=== PATIENT | male | born 1930 | race American Indian/Alaskan Native ===

== ENCOUNTER 2017-03-28 16:00 | Inpatient (IN) | payer MEDICARE ==
[2017-03-28 16:00] VITALS: BMI 23.8
--- NOTE | 2017-03-28 18:08 | CT ---
PROCEDURE: CT HEAD WITHOUT CONTRAST. HISTORY: Generalized weakness COMPARISON: Noncontrast head CT performed 01/02/17 TECHNIQUE: Axial computed tomography images were obtained through the head/brain without intravenous contrast. Radiation dose: Total exam DLP = 1130.06 mGy-cm. This CT exam was performed using one or more of the following dose reduction techniques: Automated exposure control, adjustment of the mA and/or kV according to patient size, and/or use of iterative reconstruction technique. FINDINGS: HEMORRHAGE: No intracranial hemorrhage. BRAIN: Diffuse atrophy with prominence of the ventricles and sulci noted. No mass effect or edema. Intracranial atherosclerotic calcifications. Encephalomalacia involving the right parietal and left occipital lobes. Hypodensity within the left cerebellum may reflect encephalomalacia. Scattered periventricular and subcortical white matter hypodensities, which are nonspecific, but often seen with chronic microvascular ischemic disease. Please note that MRI with diffusion imaging is more sensitive in the detection of acute ischemic event. VENTRICLES: No hydrocephalus. CALVARIUM: Unremarkable. PARANASAL SINUSES: Unremarkable as visualized. No significant inflammatory changes. MASTOID AIR CELLS: Unremarkable as visualized. No inflammatory changes. OTHER FINDINGS: None. IMPRESSION: Generalized atrophy. Encephalomalacia involving the right parietal and left occipital lobes. Hypodensity within the left cerebellum may reflect encephalomalacia. Additional nonspecific white matter changes. Please note that MRI with diffusion imaging is more sensitive in the detection of acute ischemic event.
[2017-03-28 18:10] LABS: ABG ALLEN TEST YES; ARTERIAL BLOOD GAS MODE NC; ARTERIAL BLOOD GAS O2 CAPACITY 17.4 mL/dL (16-24); ARTERIAL BLOOD GAS O2 CONTENT 17.5 ML/dL (15-23); ARTERIAL BLOOD GAS PH 7.43 (7.35-7.45); ARTERIAL BLOOD GAS PO2 106 mm/Hg (80-100); ARTERIAL BLOOD HGB O2 SAT 95.6 % (95.0-98.0); CARBOXYHEMOGLOBIN 3.1 % (0.5-1.5); HHB -0.8 % (0.0-5.0); METHEMOGLOBIN 2.2 % (0.0-3.0)
--- NOTE | 2017-03-28 18:18 | ED PDOC ---
HPI: General Adult Time Seen by Provider: 03/28/17 16:33 Chief Complaint (Nursing): Weakness/Neurological Deficit Chief Complaint (Provider): Generalized weakness History Per: Patient, Family (Son) History/Exam Limitations: no limitations Onset/Duration Of Symptoms: Days Have you had recent travel within the past 21 days to any of the following countries: [place], [place], [place] or [place]?: No Current Symptoms Are (Timing): Still Present Additional Complaint(s): Norbert Castillo, an 87 year old male, presents to the ED with generalized weakness he has been experiencing for the past couple days. He states that he just feels weakness all over. The patient's son states that he was recently released from the hospital and for the past day he has been breathing funny. Denies cough, fever and chest pain. PMD: [place] Past Medical History Reviewed: Historical Data, Nursing Documentation, Vital Signs Vital Signs: Last Vital Signs Temp 97.9 F 03/28/17 16:04 Pulse 134 H 03/28/17 21:10 Resp 27 H 03/28/17 21:10 BP 140/97 H 03/28/17 21:10 Pulse Ox 100 03/28/17 21:21 - Medical History PMH: CAD, CHF, COPD, Dementia, Deep Vein Thrombosis, HTN, Hypercholesterolemia, Pancreatitis Denies: HIV, Chronic Kidney Disease - Family History Family History: States: Unknown Family Hx - Social History Current smoker - smoking cessation education provided: Yes - Immunization History Hx Tetanus Toxoid Vaccination: No Hx Influenza Vaccination: No Hx Pneumococcal Vaccination: No - Home Medications Home Medications: Ambulatory Orders Medication Instructions Recorded Acetaminophen [Tylenol 325mg tab] 2 tab PO Q4H PRN 03/28/17 Apixaban [Eliquis] 2.5 mg PO BID 03/28/17 Aspirin [Ecotrin] 81 mg PO DAILY 03/28/17 Atorvastatin Calcium [Atorvastatin 10 mg PO HS 03/28/17 Calcium] Carvedilol [Coreg] 1 tab PO Q12H 03/28/17 Cholecalciferol (Vitamin D3) 1 tab PO DAILY 03/28/17 [Vitamin D3] Donepezil HCl [Aricept] 5 mg PO HS 03/28/17 Furosemide [Lasix] 40 mg PO DAILY 03/28/17 Losartan Potassium [Losartan 25 mg PO DAILY 03/28/17 Potassium] Megestrol Acetate [Megestrol 10 ml PO DAILY 03/28/17 Acetate] Mirtazapine [Mirtazapine] 15 mg PO DAILY 03/28/17 Rosuvastatin Calcium [Rosuvastatin 10 mg PO HS 03/28/17 Calcium] amLODIPine [Norvasc] 5 mg PO DAILY 03/28/17 - Allergies Allergies/Adverse Reactions: Allergies Allergy/AdvReac Type Severity Reaction Status Date / Time moxifloxacin HCl Allergy REDNESS Verified 03/28/17 16:04 [From Avelox] Penicillins Allergy RASH Verified 03/28/17 16:04 vancomycin AdvReac RASH Verified 03/28/17 16:04 Review of Systems ROS Statement: Except As Marked, All Systems Reviewed And Found Negative Constitutional: Positive for: Weakness (generalized weakness). Negative for: Fever Cardiovascular: Negative for: Chest Pain Respiratory: Negative for: Cough Physical Exam - Reviewed Nursing Documentation Reviewed: Yes Vital Signs Reviewed: Yes - Physical Exam Appears: Positive for: Non-toxic (Looks lethargic), No Acute Distress Head Exam: Positive for: ATRAUMATIC, NORMOCEPHALIC Skin: Positive for: Normal Color, Warm, Dry Eye Exam: Positive for: Normal appearance, EOMI, PERRL ENT: Positive for: Other (Mucous membranes are dry.) Neck: Positive for: Normal, Painless ROM, Supple Cardiovascular/Chest: Positive for: Regular Rate, Rhythm, Chest Non Tender, Tachycardia Respiratory: Positive for: Normal Breath Sounds. Negative for: Wheezing, Respiratory Distress Gastrointestinal/Abdominal: Positive for: Normal Exam, Soft. Negative for: Tenderness Back: Positive for: Normal Inspection. Negative for: L CVA Tenderness, R CVA Tenderness Extremity: Positive for: Normal ROM, Tenderness. Negative for: Deformity, Swelling Neurologic/Psych: Positive for: Alert, Oriented, Other (Arousable to verbal stimuli.) - Laboratory Results Result Diagrams: 03/28/17 18:00 03/28/17 18:00 - ECG O2 Sat by Pulse Oximetry: 100 (RA) Pulse Ox Interpretation: Normal - Radiology X-Ray: Interpreted by Al X-Ray Interpretation: COPD - CT Scan/US CT head Other Rad Studies (CT/US): Radiology Report Reviewed (Generalized atrophy. Encephalomalacia involving the right parietal and left occipital lobes. Hypodensity within the left cerebellum may reflect encephalomalacia. Additional nonspecific white matter changes. Please note that MRI with diffusion imaging is more sensitive in the detection of acute ischemic event.) CT chest Other Rad Studies (CT/US): Radiology Report Reviewed (Emphysema, no focal pneumonia; no pulmonary emboli; cardiomegaly and atherosclerotic disease; mediastinal and hilar adenopathy infectious/inflammatory versus neoplastic; gallstones.) - Physician Consult Information Time Consulting Physican Contacted: 21:20 Physician Contacted: Efrain Ahuja Medical Decision Making Medical Decision Makin:33 Initial Impression: 87 year old male presenting with generalized weakness. Initial Plan: * ABG * CT head w/o contrast * EKG * CMP * Troponin 1 * CBC * D-dimer * PTT * Prothrombin time * CXR * Blood culture * Glucose,Blood, POC * Urinalysis * Reevaluation Scribe Attestation Documented by Concepcion Lucia acting as a scribe for Shyann Moreno MD. Provider Attestation All medical record entries made by the Scribe were at my direction and personally dictated by me. I have reviewed the chart and agree that the record accurately reflects my personal performance of the history, physical exam, medical decision making, and the department course for this patient. I have also personally directed, reviewed, and agree with the discharge instructions and disposition. Disposition - Clinical Impression Clinical Impression: Generalized weakness, NSTEMI (non-ST elevated myocardial infarction), Mediastinal adenopathy, Hilar adenopathy - Patient ED Disposition Is Patient to be Admitted: Yes - Disposition Disposition Time: 21:30 Condition: GUARDED - Pt Status Changed To: Hospital Disposition Of: Inpatient - Admit Certification Admit to Inpatient:: After my assessment, the patient will require hospitalization for at least two midnights. This is because of the severity of symptoms shown, intensity of services needed, and/or the medical risk in this patient being treated as an outpatient. - POA Present On Arrival: None
[2017-03-28 18:30] LABS: BASO # 0.1 K/uL (0.0-0.2); BASO % 0.7 % (0.0-2.0); EOS # 0.1 K/uL (0.0-0.7); EOS % 0.9 % (0.0-4.0); HEMATOCRIT 39.4 % (35.0-51.0); LYMPH # 2.1 K/uL (1.0-4.3); LYMPH % 21.2 % (20.0-40.0); MEAN CELL VOLUME 93.7 fl (80.0-94.0); MEAN CORPUSCULAR HEMOGLOBIN 29.5 pg (27.0-31.0); MEAN CORPUSCULAR HGB CONC 31.5 g/dL (33.0-37.0); MONO % 10.5 % (0.0-10.0); NEUT # 6.4 K/uL (1.8-7.0); NEUT % 66.7 % (50.0-75.0); RED CELL DISTRIBUTION WIDTH 18.7 % (11.5-14.5); WHITE BLOOD COUNT 9.7 K/uL (4.8-10.8)
[2017-03-28 18:38] LABS: ALB/GLOB RATIO 0.9 (1.0-2.1); ALKALINE PHOSPHATASE 58 U/L (38-126); ALT/SGPT 20 U/L (21-72); AST/SGOT 23 U/L (17-59); BILIRUBIN,TOTAL 1.8 mg/dl (0.2-1.3); BLOOD UREA NITROGEN 28 mg/dl (9-20); CALCIUM 9.5 mg/dL (8.4-10.2); CARBON DIOXIDE 15 mmol/L (22-30); CHLORIDE 112 mmol/L (98-107); GFR AFRICAN-AMERICAN > 60; GLUCOSE,RANDOM 102 mg/dL (75-110); POTASSIUM 4.2 MMOL/L (3.6-5.0); SODIUM 143 mmol/l (132-148); TOTAL PROTEIN 7.7 G/DL (6.3-8.2)
[2017-03-28] MEDS ORDERED: Sodium Chloride 0.9% 500 ML IV STA (18:51)
[2017-03-28 19:22] LABS: PARTIAL THROMBOPLASTIN TIME > 180.0 SECONDS (23.3-32.5)
[2017-03-28] MEDS ORDERED: Iodixanol 320 MG/ML 100 ML BOTTLE IV ONE (20:15)
[2017-03-28] MEDS ORDERED: Sodium Chloride 0.9% 50 ML IV ONE (20:16)
[2017-03-28 20:47] LABS: PARTIAL THROMBOPLASTIN TIME 38.7 SECONDS (23.3-32.5)
--- NOTE | 2017-03-28 21:36 | CT ---
EXAM: CT Angiography Chest With Intravenous Contrast CLINICAL HISTORY: 87 years old, male; Signs and symptoms; Shortness of breath and tachypnea; Additional info: SOB, tachy TECHNIQUE: Axial computed tomographic angiography images of the chest with intravenous contrast using pulmonary embolism protocol. This CT exam was performed using one or more of the following dose reduction techniques: automated exposure control, adjustment of the mA and/or kV according to patient size, and/or use of iterative reconstruction technique. MIP reconstructed images were created and reviewed. Coronal and sagittal reformatted images were created and reviewed. CONTRAST: 80 mL of [id number] administered intravenously. EXAM DATE/TIME: 03/28/2017 7:30 PM COMPARISON: CT - ANGIO CHEST PE PROTOCOL 12/30/2016 2:15:09 AM FINDINGS: Heart, aorta and Pulmonary arteries: There is a persistent left superior vena cava. The heart is enlarged. There are coronary artery calcifications. There is reflux of contrast into inferior vena cava and hepatic veins. Pulmonary vessels are well opacified. There is no central pulmonary emboli. There are no filling defects in the proximal peripheral vessels. Severe architectural distortion limits evaluation of peripheral lower lobe vessels. Lungs: Trachea and bronchi are patent. There is no pneumothorax. There diffuse emphysematous changes bilaterally difficult to characterize. Nodular pleural thickening at the right apex is unchanged. There is scarring with pleural nodularity in the right middle lobe and in the lingula, unchanged. There are blebs and bulla in the lower lobes. There is fibrosis in the lower lobes. There is dependent atelectasis. There is no lobar or segmental consolidation. There is a 2.2 cm pleural-based left lower lobe nodule, unchanged. There are no effusions. Mediastinum: There is mediastinal and hilar adenopathy. Esophagus is unremarkable. Thyroid: Thyroid is not optimally demonstrated. Bones/joints: Bony structures are osteopenic with degenerative change Soft tissues: unremarkable Upper abdomen: There are no acute abnormalities in the visualized portion of the abdomen. Gallbladder is distended with stones. Pancreas is atrophic. IMPRESSION: Emphysema, no focal pneumonia; no pulmonary emboli; cardiomegaly and atherosclerotic disease; mediastinal and hilar adenopathy infectious/inflammatory versus neoplastic; gallstones
[2017-03-28] MEDS ORDERED: Sodium Chloride 0.9% 1,000 ML IV STA (21:54)
--- NOTE | 2017-03-29 08:38 | CARD ---
APPROVED REPORT EKG Measurement Heart [id number] P101 [id number] <Conclusion> Atrial flutter with 2:1 AV conduction Minimal voltage criteria for LVH, may be normal variant T wave abnormality, consider inferior ischemia Abnormal ECG
[2017-03-29] MEDS ORDERED: MEGESTROL ACETATE PO SCH (09:00)
[2017-03-29] MEDS ORDERED: Megestrol Acetate 40 mg/ml Cup PO SCH (09:00)
[2017-03-29] MEDS ORDERED: Patient's Own Med (Cholecalciferol (Vitamin D3) [Vitamin D3] 1 TAB) PO SCH (09:00)
[2017-03-29 09:46] LABS: THYROID STIMULATING HORMONE 2.36 mIU/ML (0.46-4.68)
--- NOTE | 2017-03-29 12:05 | RAD ---
HISTORY: Generalized weakness COMPARISON: Comparison made with prior chest radiograph dated 01/06/2017. Note also that this examination was read in conjunction with subsequent CTA of the chest dated 03/28/2017 at 20:30 hours. FINDINGS: LUNGS: Emphysematous changes with upper lobe predominance present though seen to better advantage on prior CTA chest. Mild bibasilar atelectasis -scarring changes. 2.2 cm elliptical shaped pleural-based mass density left posterior sulcus not appreciated on this study. Please refer to CTA of the chest for further evaluation. PLEURA: No apparent pneumothorax or effusion however chronic appearing pleural thickening changes both lung bases and CP angle regions. CARDIOVASCULAR: Heart is enlarged. OSSEOUS STRUCTURES: No significant abnormalities. VISUALIZED UPPER ABDOMEN: Normal. OTHER FINDINGS: None. IMPRESSION: Emphysematous changes with upper lobe predominance present though seen to better advantage on prior CTA chest. Mild bibasilar atelectasis -scarring and pleural thickening changes. 2.2 cm elliptical shaped pleural-based mass density left posterior sulcus not appreciated on this study. Please refer to CTA of the chest for further evaluation.
[2017-03-29 12:35] LABS: RBC URINE 1 /hpf (0-3); URINE BILIRUBIN NEGATIVE (NEGATIVE); URINE BLOOD NEGATIVE (NEGATIVE); URINE COLOR YELLOW (YELLOW); URINE GLUCOSE (UA) NEG (Normal); URINE KETONE TRACE mg/dL (NEGATIVE); URINE LEUKOCYTE ESTERASE NEG Leu/uL (Negative); URINE PROTEIN 30 mg/dL (NEGATIVE); URINE UROBILINOGEN 0.2-1.0 mg/dL (0.2-1.0); WBC URINE 1 /hpf (0-5)
--- NOTE | 2017-03-29 14:04 | CP.PCM.HP ---
History of Present Illness - History of Present Illness History of Present Illness: Norbert Castillo, an 87 year old male, presents to the ED with generalized weakness he has been experiencing for the past couple days. He states that he just feels weakness all over. The patient's son states that he was recently released from the hospital and for the past day he has been breathing funny. Denies cough, fever and chest pain. Past Patient History - Infectious Disease Hx of Infectious Diseases: None - Past Medical History & Family History Past Medical History?: Yes - Past Social History Smoking Status: Former Smoker - CARDIAC Hx Cardiac Disorders: Yes Hx Congestive Heart Failure: Yes Hx Hypercholesterolemia: Yes Hx Hypertension: Yes - PULMONARY Hx Respiratory Disorders: Yes Hx Chronic Obstructive Pulmonary Disease (COPD): Yes - NEUROLOGICAL Hx Neurological Disorder: Yes Hx Dementia: Yes - HEENT Hx HEENT Problems: No - RENAL Hx Chronic Kidney Disease: No - ENDOCRINE/METABOLIC Hx Endocrine Disorders: No - HEMATOLOGICAL/ONCOLOGICAL Hx Blood Disorders: No Hx AIDS: No Hx Human Immunodeficiency Virus (HIV): No - INTEGUMENTARY Hx Dermatological Problems: No - MUSCULOSKELETAL/RHEUMATOLOGICAL Hx Musculoskeletal Disorders: Yes Hx Falls: No Hx Unsteady Gait: Yes - GASTROINTESTINAL Hx Pancreatitis: Yes - GENITOURINARY/GYNECOLOGICAL Hx Genitourinary Disorders: No - PSYCHIATRIC Hx Psychophysiologic Disorder: No Hx Substance Use: No - SURGICAL HISTORY Hx Surgeries: Yes Hx Amputation: Yes (RIGHT ABOVE THE KNEE) - ANESTHESIA Hx Anesthesia: Yes Hx Anesthesia Reactions: No Hx Malignant Hyperthermia: No Meds Allergies/Adverse Reactions: Allergies Allergy/AdvReac Type Severity Reaction Status Date / Time moxifloxacin HCl Allergy REDNESS Verified 03/28/17 16:04 [From Avelox] Penicillins Allergy RASH Verified 03/28/17 16:04 vancomycin AdvReac RASH Verified 03/28/17 16:04 Results - Vital Signs Recent Vital Signs: Last Vital Signs Temp 98.4 F 03/29/17 12:32 Pulse 98 H 03/29/17 12:32 Resp 18 03/29/17 12:32 BP 142/80 03/29/17 12:32 Pulse Ox 99 03/29/17 12:32 - Labs Result Diagrams: 03/28/17 18:00 03/28/17 18:00 Labs: Laboratory Results - last 24 hr 03/29/17 03/29/17 03/29/17 00:45 08:40 08:40 Troponin I 0.1820 H* 0.1650 H* Vitamin B12 > 1000 H TSH 3rd Generation 2.36 Urine Color Urine Clarity Urine pH Ur Specific [place] Urine Protein Urine Glucose (UA) Urine Ketones Urine Blood Urine Nitrate Urine Bilirubin Urine Urobilinogen Ur Leukocyte Esterase Urine RBC (Auto) Urine Microscopic WBC Ur Squamous Epith Cells 03/29/17 12:00 Troponin I Vitamin B12 TSH 3rd Generation Urine Color Yellow Urine Clarity Clear Urine pH 5.0 Ur Specific [place] 1.031 H Urine Protein 30 Urine Glucose (UA) Neg Urine Ketones Trace Urine Blood Negative Urine Nitrate Negative Urine Bilirubin Negative Urine Urobilinogen 0.2-1.0 Ur Leukocyte Esterase Neg Urine RBC (Auto) 1 Urine Microscopic WBC 1 Ur Squamous Epith Cells < 1
--- NOTE | 2017-03-29 15:28 | CP.PCM.CON ---
History of Present Illness - History of Present Illness History of Present Illness: I was asked to see patient by Dr. Barrera. Patient is an 87 year old male with a history of HTN, CAD, hypercholesterolemia who presents with weakness and fatigue. The patient underwent previous cardiac cath revealing multivessel CAD. Due to comorbidities, it was recommend to have medical therapy.The patient is not communicative at this point. Review of Systems - Review of Systems Systems not reviewed;Unavailable: Altered Mental Status Past Patient History - Infectious Disease Hx of Infectious Diseases: None - Past Medical History & Family History Past Medical History?: Yes - Past Social History Smoking Status: Former Smoker - CARDIAC Hx Cardiac Disorders: Yes Hx Congestive Heart Failure: Yes Hx Hypercholesterolemia: Yes Hx Hypertension: Yes - PULMONARY Hx Respiratory Disorders: Yes Hx Chronic Obstructive Pulmonary Disease (COPD): Yes - NEUROLOGICAL Hx Neurological Disorder: Yes Hx Dementia: Yes - HEENT Hx HEENT Problems: No - RENAL Hx Chronic Kidney Disease: No - ENDOCRINE/METABOLIC Hx Endocrine Disorders: No - HEMATOLOGICAL/ONCOLOGICAL Hx Blood Disorders: No Hx AIDS: No Hx Human Immunodeficiency Virus (HIV): No - INTEGUMENTARY Hx Dermatological Problems: No - MUSCULOSKELETAL/RHEUMATOLOGICAL Hx Musculoskeletal Disorders: Yes Hx Falls: No Hx Unsteady Gait: Yes - GASTROINTESTINAL Hx Pancreatitis: Yes - GENITOURINARY/GYNECOLOGICAL Hx Genitourinary Disorders: No - PSYCHIATRIC Hx Psychophysiologic Disorder: No Hx Substance Use: No - SURGICAL HISTORY Hx Surgeries: Yes Hx Amputation: Yes (RIGHT ABOVE THE KNEE) - ANESTHESIA Hx Anesthesia: Yes Hx Anesthesia Reactions: No Hx Malignant Hyperthermia: No Meds Allergies/Adverse Reactions: Allergies Allergy/AdvReac Type Severity Reaction Status Date / Time moxifloxacin HCl Allergy REDNESS Verified 03/28/17 16:04 [From Avelox] Penicillins Allergy RASH Verified 03/28/17 16:04 vancomycin AdvReac RASH Verified 03/28/17 16:04 - Medications Medications: Current Medications Acetaminophen (Tylenol 325mg Tab) 650 mg PO Q4H PRN PRN Reason: Pain, Mild (1-3) Amlodipine Besylate (Norvasc) 5 mg PO DAILY [facility] Last Admin: 03/29/17 09:02 Dose: 5 mg Apixaban (Eliquis) 2.5 mg PO BID [facility] PRN Reason: Protocol Last Admin: 03/29/17 11:54 Dose: 2.5 mg Aspirin (Ecotrin) 81 mg PO DAILY [facility] Last Admin: 03/29/17 09:02 Dose: 81 mg Atorvastatin Calcium (Lipitor) 20 mg PO HS [facility] Carvedilol (Coreg) 12.5 mg PO Q12H [facility] Last Admin: 03/29/17 09:01 Dose: 12.5 mg Cholecalciferol (Vitamin D) 2,000 iu PO DAILY [facility] Last Admin: 03/29/17 09:03 Dose: 2,000 iu Donepezil HCl (Aricept) 5 mg PO HS [facility] Furosemide (Lasix) 40 mg PO DAILY [facility] Last Admin: 03/29/17 09:02 Dose: 40 mg Losartan Potassium (Cozaar) 25 mg PO DAILY [facility] Last Admin: 03/29/17 09:01 Dose: 25 mg Megestrol Acetate (Megace) 400 mg PO DAILY [facility] Last Admin: 03/29/17 09:02 Dose: 400 mg Mirtazapine (Remeron) 15 mg PO DAILY [facility] Last Admin: 03/29/17 09:03 Dose: 15 mg Physical Exam - Constitutional Appears: Non-toxic - Head Exam Head Exam: NORMAL INSPECTION - Eye Exam Eye Exam: Normal appearance - ENT Exam ENT Exam: Mucous Membranes Moist - Neck Exam Neck exam: Positive for: Full Rom - Respiratory Exam Respiratory Exam: Decreased Breath Sounds - Cardiovascular Exam Cardiovascular Exam: REGULAR RHYTHM - GI/Abdominal Exam GI & Abdominal Exam: Normal Bowel Sounds - Rectal Exam Rectal Exam: Deferred - Extremities Exam Extremities exam: Positive for: pedal edema - Back Exam Back exam: NORMAL INSPECTION - Neurological Exam Neurological exam: Alert, Oriented x3 - Psychiatric Exam Psychiatric exam: Normal Affect - Skin Skin Exam: Normal Color Results - Vital Signs Recent Vital Signs: Last Vital Signs Temp 98.4 F 03/29/17 12:32 Pulse 98 H 03/29/17 12:32 Resp 18 03/29/17 12:32 BP 142/80 03/29/17 12:32 Pulse Ox 99 03/29/17 12:32 - Labs Result Diagrams: 03/28/17 18:00 03/28/17 18:00 Labs: Laboratory Results - last 24 hr 03/29/17 03/29/17 03/29/17 00:45 08:40 08:40 Troponin I 0.1820 H* 0.1650 H* Vitamin B12 > 1000 H TSH 3rd Generation 2.36 Urine Color Urine Clarity Urine pH Ur Specific [place] Urine Protein Urine Glucose (UA) Urine Ketones Urine Blood Urine Nitrate Urine Bilirubin Urine Urobilinogen Ur Leukocyte Esterase Urine RBC (Auto) Urine Microscopic WBC Ur Squamous Epith Cells 03/29/17 12:00 Troponin I Vitamin B12 TSH 3rd Generation Urine Color Yellow Urine Clarity Clear Urine pH 5.0 Ur Specific [place] 1.031 H Urine Protein 30 Urine Glucose (UA) Neg Urine Ketones Trace Urine Blood Negative Urine Nitrate Negative Urine Bilirubin Negative Urine Urobilinogen 0.2-1.0 Ur Leukocyte Esterase Neg Urine RBC (Auto) 1 Urine Microscopic WBC 1 Ur Squamous Epith Cells < 1 - EKG Data EKG Interpreted by: Myself Assessment & Plan (1) CAD (coronary artery disease) Assessment and Plan: recommend antiplatelet therapy. Status: Acute (2) Hypercholesterolemia Assessment and Plan: recommend statin therapy Status: Acute (3) Hypertension Assessment and Plan: will monitor blood pressure Status: Chronic Priority: High
[2017-03-29] MEDS ORDERED: ROSUVASTATIN CALCIUM 10 MG PO SCH (22:00)
--- NOTE | 2017-03-29 23:10 | CP.PCM.PN ---
Subjective - Date & Time of Evaluation Date of Evaluation: 03/29/17 Objective - Vital Signs/Intake and Output Vital Signs (last 24 hours): Temp Pulse Resp BP Pulse Ox 97.9 F 60 20 105/73 100 03/29/17 20:00 03/29/17 20:00 03/29/17 20:00 03/29/17 20:00 03/29/17 20:00 Intake and Output: 03/29/17 03/30/17 18:59 06:59 Intake Total 400 Output Total 500 Balance -100 - Labs Labs: PT 40.8 SECONDS (9.6-11.2) H* 03/28/17 19:45 INR 3.92 (0.92-1.08) H 03/28/17 19:45 APTT 38.7 SECONDS (23.3-32.5) H 03/28/17 19:45
[2017-03-30 07:18] LABS: HEMATOCRIT 40.2 % (35.0-51.0); MEAN CELL VOLUME 92.3 fl (80.0-94.0); MEAN CORPUSCULAR HEMOGLOBIN 29.8 pg (27.0-31.0); MEAN CORPUSCULAR HGB CONC 32.3 g/dL (33.0-37.0); RED CELL DISTRIBUTION WIDTH 18.3 % (11.5-14.5); WHITE BLOOD COUNT 7.3 K/uL (4.8-10.8)
[2017-03-30 07:39] LABS: ALB/GLOB RATIO 0.9 (1.0-2.1); ALKALINE PHOSPHATASE 55 U/L (38-126); ALT/SGPT 21 U/L (21-72); AST/SGOT 23 U/L (17-59); BILIRUBIN,TOTAL 1.3 mg/dl (0.2-1.3); BLOOD UREA NITROGEN 20 mg/dl (9-20); CALCIUM 9.1 mg/dL (8.4-10.2); CARBON DIOXIDE 21 mmol/L (22-30); CHLORIDE 111 mmol/L (98-107); GFR AFRICAN-AMERICAN > 60; GLUCOSE,RANDOM 92 mg/dL (75-110); POTASSIUM 3.4 MMOL/L (3.6-5.0); SODIUM 144 mmol/l (132-148); TOTAL PROTEIN 6.9 G/DL (6.3-8.2)
--- NOTE | 2017-03-30 08:27 | CARD ---
APPROVED REPORT EXAM: Two-dimensional and M-mode echocardiogram with Doppler and color Doppler. Other Information Quality : [employer] : INDICATION 2D DIMENSIONS IVSd1.68 (0.7-1.1cm)LVDd4.05 (3.9-5.9cm) LVOT Diameter1.64 (1.8-2.4cm)PWd1.17 (0.7-1.1cm) IVSs1.89 (0.8-1.2cm)LVDs3.13 (2.5-4.0cm) FS (%) 22.7 %PWs2.02 (0.8-1.2cm) M-Mode DIMENSIONS Left Atrium (MM)3.80 (2.5-4.0cm)Aortic Root3.12 (2.2-3.7cm) Aortic Cusp Exc.1.58 (1.5-2.0cm) Aortic Valve AoV Peak Sbhqdjmo74.6cm/sAoV VTI10.0cmAO Peak GR.2mmHg LVOT Peak Szmsfupk97.7cm/Paddy Mean GR.1mmHgAVA (VMAX)0.93cm2 Mitral Valve MV E Zvfyfthl97.9cm/sMV E Peak Gr.48mmHgMV DECEL [id number] MV A Msbkvbdm23.6cm/sMV AHZ67tjN/A ratio4.3 MVA (PHT)4.95cm2 TDI Lateral E' Peak V3.99cm/sMedial E' Peak V5.05cm/sE/Lateral E'21.3 E/Medial E'16.8 Tricuspid Valve TR Peak Nyvlcdwy611ez/sRAP [id number] Peak Gr.25mmHg [id number] LEFT VENTRICLE The left ventricle is normal size. There is moderate concentric left ventricular hypertrophy. Left ventricle systolic function is severely impaired. The Ejection Fraction is 10-15%. Severe generalised hypokinesia Transmitral Doppler flow pattern is Grade II-pseudonormal filling dynamics. RIGHT VENTRICLE The right ventricle is moderately dilated. There is normal right ventricular wall thickness. Systolic function is moderately to severely reduced. ATRIA The left atrium is moderately dilated. The right atrium is moderately dilated. AORTIC VALVE The aortic valve is normal in structure and function. No aortic regurgitation is present. There is no aortic valvular stenosis. MITRAL VALVE The mitral valve is normal in structure. There is no evidence of mitral valve prolapse. There is no mitral valve stenosis. Mitral regurgitation is mild to moderate. TRICUSPID VALVE The tricuspid valve is normal in structure. There is moderate tricuspid regurgitation. Right ventricular systolic pressure is estimated at 52 mmHg. There is moderate-severe pulmonary hypertension. PULMONIC VALVE The pulmonic valve is not well visualized. There is no pulmonic valvular regurgitation. GREAT VESSELS The aortic root is normal in size. The IVC was not visualized. PERICARDIAL EFFUSION The pericardium appears normal. <Conclusion> The left ventricle is normal size. There is moderate concentric left ventricular hypertrophy. Severe generalised hypokinesia Left ventricle systolic function is severely impaired. The Ejection Fraction is 10-15%. Transmitral Doppler flow pattern is Grade II-pseudonormal filling dynamics. The right ventricle is moderately dilated. Systolic function is moderately to severely reduced. The left atrium is moderately dilated. The right atrium is moderately dilated. There is moderate tricuspid regurgitation. There is moderate-severe pulmonary hypertension.
[2017-03-30] MEDS: Megestrol Acetate 40 mg/ml Cup PO SCH (08:51)
[2017-03-30] MEDS ORDERED: Potassium Chloride 20 mEq ER Tab PO ONE (12:39)
--- NOTE | 2017-03-30 15:16 | CP.PCM.CON ---
History of Present Illness - History of Present Illness History of Present Illness: 87 y.o male with pmhjx of CAD, CHF, COPD, Dementia, Deep Vein Thrombosis, HTN, Hypercholesterolemia, Pancreatitis seen at bedside for routine left foot care. Patient complains of pain in his toes and toenails. Patient denies any other pedal complaints. Patient denies any acute events overnight. He denies n/f/v/d/c /sob. Patient had a previous left AKA. Review of Systems - Constitutional Constitutional: As Per HPI Past Patient History - Infectious Disease Hx of Infectious Diseases: None - Past Medical History & Family History Past Medical History?: Yes - Past Social History Smoking Status: Former Smoker - CARDIAC Hx Cardiac Disorders: Yes Hx Congestive Heart Failure: Yes Hx Hypercholesterolemia: Yes Hx Hypertension: Yes - PULMONARY Hx Respiratory Disorders: Yes Hx Chronic Obstructive Pulmonary Disease (COPD): Yes - NEUROLOGICAL Hx Neurological Disorder: Yes Hx Dementia: Yes - HEENT Hx HEENT Problems: No - RENAL Hx Chronic Kidney Disease: No - ENDOCRINE/METABOLIC Hx Endocrine Disorders: No - HEMATOLOGICAL/ONCOLOGICAL Hx Blood Disorders: No Hx AIDS: No Hx Human Immunodeficiency Virus (HIV): No - INTEGUMENTARY Hx Dermatological Problems: No - MUSCULOSKELETAL/RHEUMATOLOGICAL Hx Musculoskeletal Disorders: Yes Hx Falls: No Hx Unsteady Gait: Yes - GASTROINTESTINAL Hx Pancreatitis: Yes - GENITOURINARY/GYNECOLOGICAL Hx Genitourinary Disorders: No - PSYCHIATRIC Hx Psychophysiologic Disorder: No Hx Substance Use: No - SURGICAL HISTORY Hx Surgeries: Yes Hx Amputation: Yes (RIGHT ABOVE THE KNEE) - ANESTHESIA Hx Anesthesia: Yes Hx Anesthesia Reactions: No Hx Malignant Hyperthermia: No Meds Allergies/Adverse Reactions: Allergies Allergy/AdvReac Type Severity Reaction Status Date / Time moxifloxacin HCl Allergy REDNESS Verified 03/28/17 16:04 [From Avelox] Penicillins Allergy RASH Verified 03/28/17 16:04 vancomycin AdvReac RASH Verified 03/28/17 16:04 - Medications Medications: Current Medications Acetaminophen (Tylenol 325mg Tab) 650 mg PO Q4 PRN PRN Reason: Pain, Mild (1-3) Amlodipine Besylate (Norvasc) 5 mg PO DAILY [facility] Last Admin: 03/30/17 12:42 Dose: Not Given Apixaban (Eliquis) 2.5 mg PO BID [facility] PRN Reason: Protocol Last Admin: 03/30/17 08:49 Dose: 2.5 mg Aspirin (Ecotrin) 81 mg PO DAILY [facility] Last Admin: 03/30/17 08:51 Dose: 81 mg Atorvastatin Calcium (Lipitor) 20 mg PO DAILY [facility] Last Admin: 03/30/17 08:50 Dose: 20 mg Carvedilol (Coreg) 12.5 mg PO Q12 [facility] Last Admin: 03/30/17 08:50 Dose: 12.5 mg Cholecalciferol (Vitamin D) 2,000 iu PO DAILY [facility] Last Admin: 03/30/17 08:51 Dose: 2,000 iu Donepezil HCl (Aricept) 5 mg PO HS [facility] Last Admin: 03/30/17 00:08 Dose: 5 mg Furosemide (Lasix) 40 mg PO DAILY [facility] Last Admin: 03/30/17 08:50 Dose: 40 mg Losartan Potassium (Cozaar) 25 mg PO DAILY [facility] Last Admin: 03/30/17 12:42 Dose: Not Given Megestrol Acetate (Megace) 400 mg PO DAILY [facility] Last Admin: 03/30/17 08:51 Dose: 400 mg Mirtazapine (Remeron 15mg Odt) 15 mg PO DAILY [facility] Last Admin: 03/30/17 08:52 Dose: 15 mg Physical Exam - Constitutional Appears: Well, Non-toxic, No Acute Distress - Extremities Exam Additional comments: left foot focused: previous AKA on right leg Vasc: nonpalpable DP/PT pulses, TG wnl, CFT < 3 sec to all digits neuro: grossly diminished derm: no edema, no erythema, hyperkeratotic lesion noted to posterior heel, nails are elongated, thickened nad dystrophic x 5, no open lesions, no acute clinical signs of infection ortho: limited ROM of STJ, MPJ, ankle - Neurological Exam Neurological exam: Alert, Oriented x3 - Psychiatric Exam Psychiatric exam: Normal Affect, Normal Mood Results - Vital Signs Recent Vital Signs: Last Vital Signs Temp 98 F 03/30/17 12:00 Pulse 79 03/30/17 12:00 Resp 18 03/30/17 12:00 BP 94/62 L 03/30/17 12:00 Pulse Ox 99 03/30/17 12:00 - Labs Result Diagrams: 03/30/17 07:02 03/30/17 07:02 Labs: Laboratory Results - last 24 hr 03/29/17 03/30/17 03/30/17 16:50 07:02 07:02 WBC 7.3 RBC 4.36 L Hgb 13.0 Hct 40.2 MCV 92.3 MCH 29.8 MCHC 32.3 L RDW 18.3 H Plt Count 198 Sodium 144 Potassium 3.4 L Chloride 111 H Carbon Dioxide 21 L Anion Gap 15 BUN 20 Creatinine 1.3 Est GFR ( Amer) > 60 Est GFR (Non-Af Amer) 52 Random Glucose 92 Calcium 9.1 Total Bilirubin 1.3 AST 23 ALT 21 Alkaline Phosphatase 55 Troponin I 0.1850 H* Total Protein 6.9 Albumin 3.2 L Globulin 3.7 Albumin/Globulin Ratio 0.9 L Assessment & Plan - Assessment and Plan (Free Text) Assessment: 87 y/o male seen at bedside for painful elongated toenails and preulcerative callus on posterior heel of left foot Plan: patient evaluated and chart reviewed discussed in detail with attending Dr. Guerin ordered multipodus boot to offload left heel trimmed nails using sterile nipper x 5 patient tolerated procedure well with no complications podiatry will continue to follow while patient remains in house
--- NOTE | 2017-03-30 15:44 | CP.PCM.PN ---
<Praneeth Cobian - Last Filed: 03/30/17 15:49> Subjective - Date & Time of Evaluation Date of Evaluation: 03/30/17 Time of Evaluation: 07:42 - Subjective Subjective: Patient seen and examined at bedside. No acute events overnight. Patient states feels well. No chest pain, sob, palpitations, abdominal pain, changes in urinary /bowel habits. Patient is a poor historian, ROS limited. Objective - Vital Signs/Intake and Output Vital Signs (last 24 hours): Temp Pulse Resp BP Pulse Ox 98 F 79 18 94/62 L 99 03/30/17 12:00 03/30/17 12:00 03/30/17 12:00 03/30/17 12:00 03/30/17 12:00 Intake and Output: 03/30/17 03/30/17 06:59 18:59 Intake Total 400 Output Total 500 Balance -100 - Medications Medications: Current Medications Acetaminophen (Tylenol 325mg Tab) 650 mg PO Q4 PRN PRN Reason: Pain, Mild (1-3) Amlodipine Besylate (Norvasc) 5 mg PO DAILY [facility] Last Admin: 03/30/17 12:42 Dose: Not Given Apixaban (Eliquis) 2.5 mg PO BID [facility] PRN Reason: Protocol Last Admin: 03/30/17 08:49 Dose: 2.5 mg Aspirin (Ecotrin) 81 mg PO DAILY [facility] Last Admin: 03/30/17 08:51 Dose: 81 mg Atorvastatin Calcium (Lipitor) 20 mg PO DAILY [facility] Last Admin: 03/30/17 08:50 Dose: 20 mg Carvedilol (Coreg) 12.5 mg PO Q12 [facility] Last Admin: 03/30/17 08:50 Dose: 12.5 mg Cholecalciferol (Vitamin D) 2,000 iu PO DAILY [facility] Last Admin: 03/30/17 08:51 Dose: 2,000 iu Donepezil HCl (Aricept) 5 mg PO HS [facility] Last Admin: 03/30/17 00:08 Dose: 5 mg Furosemide (Lasix) 40 mg PO DAILY [facility] Last Admin: 03/30/17 08:50 Dose: 40 mg Losartan Potassium (Cozaar) 25 mg PO DAILY [facility] Last Admin: 03/30/17 12:42 Dose: Not Given Megestrol Acetate (Megace) 400 mg PO DAILY [facility] Last Admin: 03/30/17 08:51 Dose: 400 mg Mirtazapine (Remeron 15mg Odt) 15 mg PO DAILY [facility] Last Admin: 03/30/17 08:52 Dose: 15 mg - Labs Labs: 03/30/17 07:02 03/30/17 07:02 PT 40.8 SECONDS (9.6-11.2) H* 03/28/17 19:45 INR 3.92 (0.92-1.08) H 03/28/17 19:45 APTT 38.7 SECONDS (23.3-32.5) H 03/28/17 19:45 - Constitutional Appears: Non-toxic, No Acute Distress - Head Exam Head Exam: ATRAUMATIC, NORMAL INSPECTION - Eye Exam Eye Exam: Normal appearance - Neck Exam Neck Exam: Normal Inspection - Respiratory Exam Respiratory Exam: Clear to Ausculation Bilateral, NORMAL BREATHING PATTERN - Cardiovascular Exam Cardiovascular Exam: REGULAR RHYTHM, +S1, +S2. absent: Murmur - GI/Abdominal Exam GI & Abdominal Exam: Soft, Normal Bowel Sounds. absent: Tenderness - Extremities Exam Extremities Exam: absent: Calf Tenderness Additional comments: right AKA - Neurological Exam Neurological Exam: Alert, Awake - Psychiatric Exam Psychiatric exam: Normal Affect, Normal Mood - Skin Skin Exam: Dry, Intact, Normal Color, Warm Assessment and Plan (1) CAD (coronary artery disease) Assessment & Plan: Cardiology consulted, Dr. Ahuja, appreciate recommendations medical therapy recommended at this time Asymptomatic Status: Acute (2) Hypertension Assessment & Plan: Controlled. Asymptomatic. c/w current management Status: Chronic (3) Generalized weakness Assessment & Plan: likely due to debilitation PT eval ordered Status: Acute <Barrera,Rolando K - Last Filed: 04/10/17 17:18> Objective - Vital Signs/Intake and Output Vital Signs (last 24 hours): Temp Pulse Resp BP Pulse Ox 97.5 F L 69 20 101/67 96 04/02/17 15:29 04/02/17 15:29 04/02/17 15:29 04/02/17 15:29 04/02/17 15:29 - Labs Labs: 04/02/17 06:15 04/02/17 06:15 PT 22.7 Seconds (9.8-13.1) H 04/02/17 14:30 INR 2.0 (0.9-1.2) H 04/02/17 14:30 APTT 38.7 SECONDS (23.3-32.5) H 03/28/17 19:45 Assessment and Plan - Assessment and Plan (Free Text) Assessment: Patient was personally seen and examined by me in rounds with residents. Available labs and diagnostic data reviewed. Case, Patient's condition and management plan discussed with residents in rounds. Agree with resident's documentation. Plan: As ordered. Rolando Barrera MD
[2017-03-31 08:02] LABS: HEMATOCRIT 40.7 % (35.0-51.0); MEAN CELL VOLUME 93.1 fl (80.0-94.0); MEAN CORPUSCULAR HEMOGLOBIN 29.7 pg (27.0-31.0); MEAN CORPUSCULAR HGB CONC 31.9 g/dL (33.0-37.0); RED CELL DISTRIBUTION WIDTH 18.4 % (11.5-14.5); WHITE BLOOD COUNT 7.7 K/uL (4.8-10.8)
[2017-03-31 08:28] LABS: ALB/GLOB RATIO 0.9 (1.0-2.1); BILIRUBIN,TOTAL 0.8 mg/dl (0.2-1.3); CALCIUM 8.9 mg/dL (8.4-10.2); POTASSIUM 3.7 MMOL/L (3.6-5.0); TOTAL PROTEIN 6.6 G/DL (6.3-8.2)
[2017-03-31] MEDS: Megestrol Acetate 40 mg/ml Cup PO SCH (09:13)
--- NOTE | 2017-03-31 09:43 | PN ---
DATE: 03/31/2017 The patient seen and examined. Interim events noted. Consults noted and appreciated. The patient r emains in the progressive care unit on telemetry monitoring. The patient is awake, responsive. Eduardo es any specific complaint. No chest pain, no shortness of breath, no dizziness, no loss of conscious ness, although patient is not a very good historian. PHYSICAL EXAMINATION: GENERAL: The patient is in no acute distress. VITAL SIGNS: Stable. HEART: S1, S2 normal, regular. LUNGS: Good bilateral air exchange. ABDOMEN: Soft, nontender. EXTREMITIES: No edema, no calf swelling, no tenderness, no acute ischemia. CENTRAL NERVOUS SYSTEM: Essentially unchanged. DIAGNOSTIC DATA: Available diagnostic data reviewed. Telemetry monitoring does not reveal significa nt arrhythmia. Echocardiogram shows severely decreased ejection fraction of 10-15%. PLAN: As ordered. Case and plan discussed with patient. Rolando Barrera MD cc: [id number] TT: 03/31/2017 09:43:01 Confirmation # [id number] Dictation # [id number] tn
[2017-03-31] MEDS ORDERED: Sodium Chloride 0.9% 250 ML IV ONE (11:15)
--- NOTE | 2017-03-31 18:12 | PCM.RRTMUL ---
HEALTH ANALYST Nurse Assessment - Situation HEALTH ANALYST Responder Arrival Time:: 11:05 Location:: Room Number:: 407-2 HEALTH ANALYST Reason for Call: Hypotension HEALTH ANALYST Called By: RN - IV IV Inserted during HEALTH ANALYST?: No - Respiratory Oxygen Delivery Method:: Nasal Cannula - Medication Medications Administered During HEALTH ANALYST :: NS 250CC NS BOLUS - Diagnostic Test Ordered EKG:: No Chest X-Ray:: No CT Scan:: No CPR started during HEALTH ANALYST?: No - Vital Signs Blood Pressure:: 102/64 Pulse Rate:: 70 - Siobhan Coma Scale Coma Scale Eye Opening:: Spontaneous Coma Scale Motor:: Obeys Commands Movement Coma Scale Verbal:: Oriented Coma Scale Total:: 15 - Sepsis Screen Part 1 Sepsis Screen Part 1: Hypotensive - Time HEALTH ANALYST Ended Time HEALTH ANALYST Ended:: 11:20 - Vital Signs at end of HEALTH ANALYST Blood Pressure:: 88/55 Pulse Rate:: 82 Respiratory Rate:: 18 O2 Sat by Pulse Oximetry:: 99 - Recommendations 5) HEALTH ANALYST Level of Care Recommendations: Remain in current setting 6) Notifications: Attending Physician I.Reason for HEALTH ANALYST - A) Acute Change in Patient: (Select all that apply): Acute change in SBP below (75/51) Subjective: HEALTH ANALYST called for Hypotension. Dr. Maguire and the aligner typewriter present for the duration of the HEALTH ANALYST. 87 year old male with PMH of CHF, with EF of 10-15%, HTN, CAD, hypercholesterolemia presented for generalized weakness, admitted for NSTEMI was found to be hypotensive, BP 75/51, HR 60s, SpO2 98%. Upon arrival to HEALTH ANALYST, patient was in trendelenburg position and FS. As per pts nurse, he was administered the following BP medications this AM: Norvasc 5mg , Cozaar 25mg, Coreg 12.5mg and Lasix 40mg. -STAT bolus 250 cc administered. BP rechecked after 125mL had been bolused, repeat BP was 80s/50s, HR 70-80s, SpO2 was 99%. Patient responded well. Recommendation to space out BP medications was made. Monitor BP closely. - B) Neurological Status (Select all that apply): Confused (baseline as per nurse.) - Constitutional Appears: Confused - Head Head Exam: NORMAL INSPECTION - Respiratory Exam Respiratory Exam: Clear to Ausculation Bilateral, NORMAL BREATHING PATTERN - Cardiovascular Exam Cardiovascular Exam: REGULAR RHYTHM, +S1, +S2 - Neurological Exam Neurological Exam: Awake - Extremities Exam Additional comments: right BKA
[2017-04-01 08:24] LABS: HEMATOCRIT 36.9 % (35.0-51.0); MEAN CELL VOLUME 91.7 fl (80.0-94.0); MEAN CORPUSCULAR HEMOGLOBIN 29.7 pg (27.0-31.0); MEAN CORPUSCULAR HGB CONC 32.4 g/dL (33.0-37.0); RED CELL DISTRIBUTION WIDTH 18.4 % (11.5-14.5); WHITE BLOOD COUNT 6.7 K/uL (4.8-10.8)
[2017-04-01] MEDS: Megestrol Acetate 40 mg/ml Cup PO SCH (08:29)
[2017-04-01 08:39] LABS: ALB/GLOB RATIO 0.8 (1.0-2.1); ALKALINE PHOSPHATASE 55 U/L (38-126); ALT/SGPT 23 U/L (21-72); AST/SGOT 22 U/L (17-59); BILIRUBIN,TOTAL 0.8 mg/dl (0.2-1.3); BLOOD UREA NITROGEN 20 mg/dl (9-20); CALCIUM 8.7 mg/dL (8.4-10.2); CARBON DIOXIDE 19 mmol/L (22-30); CHLORIDE 113 mmol/L (98-107); GFR AFRICAN-AMERICAN > 60; GLUCOSE,RANDOM 95 mg/dL (75-110); SODIUM 142 mmol/l (132-148); TOTAL PROTEIN 6.4 G/DL (6.3-8.2)
[2017-04-01 08:42] LABS: POTASSIUM 3.2 MMOL/L (3.6-5.0)
--- NOTE | 2017-04-01 09:11 | PN ---
DATE: 04/01/2017 The patient is seen and examined. Interim events noted. The patient remains in progressive care uni on telemetry monitoring. The patient is sleepy, arousable, not a good historian ____. No chest p ain, no shortness of breath. The patient had ____ event for hypertension. PHYSICAL EXAMINATION: GENERAL: The patient is in no acute distress. VITAL SIGNS: At this time are stable. Temperature afebrile, pulse 80, respiration 18, blood pressur e 110/70. HEENT: Pupils reacting to light. No JVD, no thyromegaly, no lymphadenopathy, no nystagmus. Normoce phalic, atraumatic skull. HEART: S1, S2 normal, regular. No significant murmur, gallop, or rub is heard. LUNGS: Show good bilateral air entry. No rales or rhonchi. ABDOMEN: Soft, nontender, no organomegaly. No fluid. Bowel sounds are plus. EXTREMITIES: No edema, no calf swelling, no tenderness, no acute ischemia. CENTRAL NERVOUS SYSTEM: Essentially unchanged. DIAGNOSTIC DATA: Available diagnostic data reviewed. Telemetry monitoring does not reveal significa nt arrhythmia. Overall, the patient's general medical condition is stable. PLAN: As ordered. Rolando Barrera MD cc: [id number] TT: 04/01/2017 09:10:51 Confirmation # [id number] Dictation # [id number] lan
--- NOTE | 2017-04-02 06:34 | CP.PCM.PN ---
Subjective - Date & Time of Evaluation Date of Evaluation: 04/02/17 Time of Evaluation: 06:34 - Subjective Subjective: 87 y.o male seen at bedside with attending Dr. Guerin for preulcerative callus on the back of the left heel. Patient complains of pain in his heel. Patient denies any other pedal complaints. Patient denies any acute events overnight. He denies n/f/v/d/c/sob. Patient had a previous left AKA. Objective - Vital Signs/Intake and Output Vital Signs (last 24 hours): Temp Pulse Resp BP Pulse Ox 98 F 77 18 100/68 100 04/02/17 04:42 04/02/17 04:42 04/02/17 04:42 04/02/17 04:42 04/02/17 04:42 Intake and Output: 04/01/17 04/02/17 18:59 06:59 Intake Total 300 Output Total 200 Balance 100 - Medications Medications: Current Medications Acetaminophen (Tylenol 325mg Tab) 650 mg PO Q4 PRN PRN Reason: Pain, Mild (1-3) Apixaban (Eliquis) 2.5 mg PO BID [facility] PRN Reason: Protocol Last Admin: 04/01/17 16:21 Dose: 2.5 mg Aspirin (Ecotrin) 81 mg PO DAILY [facility] Last Admin: 04/01/17 08:28 Dose: 81 mg Atorvastatin Calcium (Lipitor) 20 mg PO DAILY [facility] Last Admin: 04/01/17 08:28 Dose: 20 mg Carvedilol (Coreg) 12.5 mg PO Q12 [facility] Last Admin: 04/01/17 21:59 Dose: Not Given Cholecalciferol (Vitamin D) 2,000 iu PO DAILY [facility] Last Admin: 04/01/17 08:29 Dose: 2,000 iu Donepezil HCl (Aricept) 5 mg PO HS [facility] Last Admin: 04/01/17 22:01 Dose: 5 mg Losartan Potassium (Cozaar) 25 mg PO DAILY [facility] Last Admin: 04/01/17 09:38 Dose: 25 mg Megestrol Acetate (Megace) 400 mg PO DAILY [facility] Last Admin: 04/01/17 08:29 Dose: 400 mg Mirtazapine (Remeron 15mg Odt) 15 mg PO DAILY [facility] Last Admin: 04/01/17 08:29 Dose: 15 mg - Labs Labs: 04/01/17 06:30 04/01/17 06:30 PT 40.8 SECONDS (9.6-11.2) H* 03/28/17 19:45 INR 3.92 (0.92-1.08) H 03/28/17 19:45 APTT 38.7 SECONDS (23.3-32.5) H 03/28/17 19:45 - Constitutional Appears: Well, Non-toxic, No Acute Distress - Extremities Exam Additional comments: left foot focused: previous AKA on right leg Vasc: nonpalpable DP/PT pulses, TG wnl, CFT < 3 sec to all digits neuro: grossly diminished derm: no edema, no erythema, hyperkeratotic lesion noted to posterior heel, nails are elongated, thickened nad dystrophic x 5, no open lesions, no acute clinical signs of infection ortho: limited ROM of STJ, MPJ, ankle - Neurological Exam Neurological Exam: Alert, Awake, Oriented x3 - Psychiatric Exam Psychiatric exam: Normal Affect, Normal Mood Assessment and Plan - Assessment and Plan (Free Text) Assessment: 87 y/o male seen at bedside for preulcerative callus on posterior heel of left foot Plan: patient evaluated and chart reviewed seen at bedside with attending Dr. Guerin keep multipodus boot in tact at all times while bedbound mechanically debrided hyperkeratotic tissue with 4x4 gauze podiatry will continue to follow while patient remains in house
[2017-04-02 06:42] LABS: HEMATOCRIT 39.7 % (35.0-51.0); MEAN CELL VOLUME 91.9 fl (80.0-94.0); MEAN CORPUSCULAR HEMOGLOBIN 29.7 pg (27.0-31.0); MEAN CORPUSCULAR HGB CONC 32.4 g/dL (33.0-37.0); RED CELL DISTRIBUTION WIDTH 18.3 % (11.5-14.5)
[2017-04-02 07:00] LABS: ALB/GLOB RATIO 0.9 (1.0-2.1); BILIRUBIN,TOTAL 0.8 mg/dl (0.2-1.3); CALCIUM 8.8 mg/dL (8.4-10.2); POTASSIUM 3.7 MMOL/L (3.6-5.0); TOTAL PROTEIN 6.5 G/DL (6.3-8.2)
[2017-04-02] MEDS: Megestrol Acetate 40 mg/ml Cup PO SCH (09:09)
--- NOTE | 2017-04-02 09:35 | PN ---
DATE: 04/02/2017 The patient seen and examined. Interim events noted. Consults noted, appreciated. Cardiology follo wup and intervention noted and appreciated. The patient remains in progressive care unit on telemetr y monitoring. He feels okay. No chest pain or shortness of breath. PHYSICAL EXAMINATION: GENERAL: The patient is in no acute distress. VITAL SIGNS: Stable. HEART: S1, S2 normal, regular. LUNGS: Good bilateral air exchange. ABDOMEN: Soft, nontender. EXTREMITIES: No edema, no calf swelling, no tenderness, no acute ischemia. CENTRAL NERVOUS SYSTEM: Essentially unchanged. DIAGNOSTIC DATA: Available reviewed. Telemetry monitoring does not reveal significant arrhythmias. . Rolando Barrera MD cc: [id number] TT: 04/02/2017 09:33:58 Confirmation # [id number] Dictation # [id number] en
[2017-04-02 15:29] VITALS: BP 101/67; PULSE 69; RESP 20; TEMP 97.5; O2SAT 96
--- NOTE | 2017-04-04 09:37 | PQF CHF ---
according to medical record pt has a history of congestive heart failure. Please specify below type. This form is a permanent part of the medical record Clarification of your documentation is requested to better reflect the severity of illness and intensity of treatment of your patient. Indicators present [x] Diagnosis of CHF and/or history of CHF [] BNP > 200 [] Imaging Finding of Pulmonary Edema /Pleural Effusions [] Fluid/Volume Overload [] Pitting edema [] Ejection Fraction < 40% (Indicative of Systolic Heart Failure) [] Ejection Fraction > 40% (Indicative of Diastolic Heart Failure) [] Dyspnea / Orthopenea / Paroxysmal Nocturnal Dyspnea [] Other: Location in the medical record that reflects the above clinical findings: [] Treatment Provided: [] PHYSICIAN'S RESPONSE Based on your medical judgment of the clinical indicators outlined above, are you treating this patient for a known or suspected: [] Acute CHF [] Systolic [] Diastolic [] Combined [] Chronic CHF [] Systolic [] Diastolic [x] Combined [] Acute on Chronic CHF []Systolic [] Diastolic [] Combined [] CHF due hypertension [] Acute systolic []Chronic systolic [] Acute/ chronic systolic [] Other, please indicate: [] [] If Unable to Determine, please check the box, sign and date. Present On Admission (POA) Indicator: [x] Present at the time of admission [] Not present at the time of admission [] Clinically Undetermined In responding to this query, please exercise your independent professional judgment. The fact that a question is asked does not imply that any particular answer is desired or expected. Thank you for your clarification on this documentation. If you have any questions please call:[ ] * Thank you, [ ]Alexia Rizo psychiatric clinical nurse specialist GADIEL
== END 2017-04-02 17:15 | DRG 281 ==
LOC: H.ER 16:00 → H.ERHOLD 21:37 → H.TEL 03-29 00:02
PROVIDERS: ADMIT Internal Medicine; ATTEND Internal Medicine
PROC: 0HDNXZZ Extraction of Left Foot Skin, External Approach (ICD-10-PCS; principal; 2017-04-02)
DX: I21.4 Non-ST elevation (NSTEMI) myocardial infarction (principal); I50.42 Chronic combined systolic (congestive) and diastolic (congestive) heart failure; I11.0 Hypertensive heart disease with heart failure; I95.9 Hypotension, unspecified; I50.9 Heart failure, unspecified; F03.90 Unspecified dementia, unspecified severity, without behavioral disturbance, psychotic disturbance, mood disturbance, and anxiety; F17.200 Nicotine dependence, unspecified, uncomplicated; E78.00 Pure hypercholesterolemia, unspecified; I25.10 Atherosclerotic heart disease of native coronary artery without angina pectoris; Z98.61 Coronary angioplasty status; J44.9 Chronic obstructive pulmonary disease, unspecified; Z88.1 Allergy status to other antibiotic agents; Z88.3 Allergy status to other anti-infective agents; Z88.0 Allergy status to penicillin; Z86.718 Personal history of other venous thrombosis and embolism; L84 Corns and callosities; L60.3 Nail dystrophy; R53.81 Other malaise; R59.0 Localized enlarged lymph nodes